=== PATIENT | female | born 1950 | race Caucasian/White ===

== ENCOUNTER → 2017-07-12 | Outpatient (CLI) | payer MEDICARE, BC ==
[~2017-07-12] MED LIST: CHOLESTEROL MED; FLORAJEN BIFIDO1 CAP PO; LEVOTHYROXINE PO; LIPITOR 10MG10 MG PO; MOTRIN 800800 MG/TAB PO; NORCO 325 MG-51 TAB PO; VICODIN 5/5001 UDTAB PO
== END ==
LOC: MC.RAD 10:59
DX: Z12.31 Encounter for screening mammogram for malignant neoplasm of breast (principal)

== ENCOUNTER → 2019-11-23 | Outpatient (CLI) | payer MEDICARE | LOC: MC.RAD 15:46 | DX: Z12.31 Encounter for screening mammogram for malignant neoplasm of breast (principal) ==